=== PATIENT | male | born 1940 | race Caucasian/White ===

== ENCOUNTER → 2018-05-27 | Outpatient (CLI) | payer OTHER, MEDICAID ==
[~2018-05-27] MED LIST: IOPAMIDOL (ISOVUE-300) 100 ML BTL ONE
== END ==
LOC: FIMAGING 15:52
PROVIDERS: ATTEND Surgery
DX: R10.31 Right lower quadrant pain (principal); R93.2 Abnormal findings on diagnostic imaging of liver and biliary tract; K57.30 Diverticulosis of large intestine without perforation or abscess without bleeding; K40.00 Bilateral inguinal hernia, with obstruction, without gangrene, not specified as recurrent; Z98.890 Other specified postprocedural states
CPT/HCPCS: 74177; Q9967; 82565-PO

== ENCOUNTER 2018-08-14 08:54 | Observation (INO) | payer OTHER, MEDICAID ==
--- NOTE | 2018-08-14 09:15 | PDHPUP ---
History & Physical Update H&P update statement: This history and physical update is based on an assessment of the patient which was completed after admission or registration (within 24 hours), but prior to the surgery/procedure. H&P update: H&P reviewed & patient examined, no change in patient's condition since H&P completed
[2018-08-14] MEDS ORDERED: VANCOMYCIN PHARMACY TO DOSE MISC ONE (09:22)
[2018-08-14] MEDS ORDERED: LR 1,000 ML IV ONE (09:27)
[2018-08-14] MEDS ORDERED: LIDOCAINE 1% 2 ML INJ ID PRN (09:27)
[2018-08-14] MEDS ORDERED: ceFAZolin 2 GM/DEXTROSE 100 ML IV ONE (10:00)
--- NOTE | 2018-08-14 11:38 | PDANEPAE ---
ANE Past Medical History - Cardiovascular History Hx Hypertension: No Hx Arrhythmias: No Hx Chest Pain: No Hx Coronary Artery / Peripheral Vascular Disease: No Hx CHF / Valvular Disease: No Hx Palpitations: No - Pulmonary History Hx COPD: No Hx Asthma/Reactive Airway Disease: No Hx Recent Upper Respiratory Infection: No Hx Oxygen in Use at Home: No Hx Sleep Apnea: No - Neurologic History Hx Cerebrovascular Accident: No Hx Seizures: No Hx Dementia: No - Endocrine History Hx Diabetes: No - Renal History Hx Renal Disorders: No - Liver History Hx Hepatic Disorders: No - Neurological & Psychiatric Hx Hx Neurological and Psychiatric Disorders: No - Cancer History Hx Cancer: Yes 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 cholecystectomy. splenectomy ANE Review of Systems Review of Systems: - Exercise capacity METS (RN): 3 METS ANE Patient History - Allergies Allergies/Adverse Reactions: codeine Allergy (Verified 10/20/13 12:27) Penicillins Allergy (Verified 06/30/12 16:12) - Home Medications Home Medications: traZODone [traZODone 150MG (*)] 75 mg PO HS 11/21/14 [Last Taken 08/13/18 22:00] Ibuprofen PRN 08/13/18 [Last Taken 08/13/18] Ketoconazole 2% DAILY 08/13/18 [Last Taken 08/13/18] Meloxicam DAILY 08/13/18 [Last Taken 08/13/18] Triamcinolone 0.1% Cream BID 08/13/18 [Last Taken 08/13/18] - NPO status NPO Since - Liquids (Date): 08/13/18 NPO Since - Liquids (Time): 23:00 NPO Since - Solids (Date): 08/13/18 NPO Since - Solids (Time): 23:00 - Smoking Hx Smoking Status: Former smoker - Family Anes Hx Family Hx Anesthesia Complications: none known ANE Labs/Vital Signs - Vital Signs Blood Pressure: 139/80 Heart Rate: 75 Respiratory Rate: 17 O2 Sat (%): 90 Height: 172.72 cm Weight: 79.379 kg ANE Physical Exam - Airway Mallampati Score: Class 2 Mouth exam: dentures - ASA Status ASA Status: II ANE Anesthesia Plan Anesthesia Plan: general endotracheal anesthesia
[2018-08-14] MEDS ORDERED: BUPIVACAINE 0.5% 30 ML SDV ONE (11:50)
[2018-08-14] MEDS ORDERED: MIDAZOLAM 2 MG/2 ML VIAL ONE (11:52)
[2018-08-14] MEDS ORDERED: PROPOFOL 200 MG/20 ML VIAL ONE (11:53)
[2018-08-14] MEDS ORDERED: fentaNYL 100 MCG/2 ML INJ ONE ×2 (11:53→14:24)
[2018-08-14] MEDS ORDERED: METOCLOPRAMIDE 10 MG/2 ML VIAL ONE (11:55)
[2018-08-14] MEDS ORDERED: ROCURONIUM 50 MG/5 ML VIAL ONE (11:55)
[2018-08-14] MEDS ORDERED: ONDANSETRON 4 MG/2 ML VIAL ONE (11:55)
[2018-08-14] MEDS ORDERED: SUGAMMADEX SODIUM 200 MG/2 ML VIAL IVP ONE (12:55)
--- NOTE | 2018-08-14 13:14 | POSTOPPROG ---
Post Op Note Date of Operation: 08/14/18 Surgeon: Bryson Johnson Thermodynamic Physicist: Eber Anesthesiologist: Shaggy Anesthesia: GET(General Endotracheal) Pre-op Diagnosis: BIH Post-op Diagnosis: same Indication: same Procedure: Lap BIH repairs with mesh Findings: R direct inguinal, L indirect inguinal hernias Inf/Abcess present in the surg proc area at time of surgery?: No Depth: Deep Incisional (Fascial) EBL: Minimal
[2018-08-14] MEDS ORDERED: LR 500 ML IV PRN (13:16)
[2018-08-14] MEDS ORDERED: PROMETHAZINE HCL 25 MG/ML INJ IVP PRN (13:16)
[2018-08-14] MEDS ORDERED: NALOXONE HCL 0.4 MG/ML INJ IVP PRN (13:16)
[2018-08-14] MEDS ORDERED: fentaNYL 100 MCG/2 ML INJ IVP PRN (13:16)
--- NOTE | 2018-08-14 13:17 | POSTANESTH ---
Post Anesthetic Evaluation Cardiovascular Status: Normal, Stable Respiratory Status: Normal, Stable Level of Consciousness/Mental Status: Can Participate in Eval Pain Control: Adequate, Prn Tx Ordered Nausea/Vomiting Control: Adequate, Prn Tx Ordered Complications Possibly Related to Anesthesia: None Noted
[2018-08-14] MEDS ORDERED: HYDROmorphONE/DILAUDID 1 MG/ML INJ IVP PRN (13:59)
[2018-08-14] MEDS ORDERED: ACETAMINOPHEN 325 MG TAB PO PRN (13:59)
[2018-08-14] MEDS ORDERED: ONDANSETRON DISINTEGRATING 4 MG TAB PO PRN (13:59)
[2018-08-14] MEDS: oxyCODONE IR 5 MG TAB PO PRN ×2 (15:51→20:04)
--- NOTE | 2018-08-14 17:48 | SOAPPROG ---
SOAP Progress Note Assessment/Plan: Assessment: DOING WELL POSTOP/WOUND OKAY/AFEBRILE/STABLE VITAL SIGNS/EATING OKAY Plan: HOME IN 1-2 DAYS 08/14/18 17:48 Objective: Vital Signs Temp Pulse Resp BP Pulse Ox 36 C 78 18 151/86 H 95 08/14/18 16:00 08/14/18 16:00 08/14/18 16:00 08/14/18 16:00 08/14/18 16:00 08/13/18 08/14/18 08/15/18 05:59 05:59 05:59 Intake Total 800 Output Total 20 Balance 780 ICD10 Worksheet Patient Problems: Problems Problem Status Onset Osteoarthritis of shoulder Acute
[2018-08-14] MEDS ORDERED: traZODone 100 MG TAB PO SCH (21:00)
[2018-08-14] MEDS ORDERED: CALCIUM CARBONATE 500 MG CHEWABLE TAB PO PRN (21:42)
[2018-08-15] MEDS: oxyCODONE IR 5 MG TAB PO PRN ×3 (00:06→08:35)
--- NOTE | 2018-08-15 04:51 | GOP ---
DATE OF OPERATION: 08/14/2018 SURGEON: Bryson Johnson MD OFFAL SEPARATOR: Ana Velázquez NP. ANESTHESIOLOGIST: Dr. Coon. PREOPERATIVE DIAGNOSIS: Bilateral inguinal hernias. POSTOPERATIVE DIAGNOSIS: Bilateral inguinal hernias. PROCEDURE PERFORMED: Laparoscopic bilateral inguinal hernia repairs with mesh. FINDINGS: The patient was found to have bilateral direct defects, right was much greater than left. There were no indirect sacs. ESTIMATED BLOOD LOSS: Negligible. DESCRIPTION OF PROCEDURE: The patient was taken to the operating room where he received satisfactory general endotracheal anesthesia by Dr. Coon. He was placed in supine position, prepped and draped in the usual sterile fashion. An infraumbilical incision was made. Dissection was carried to the r ectus sheath which was incised as a subfascial tunnel was developed in the preperitoneal space. That was dissected free with a balloon dissector which was replaced with a CO2 insufflation trocar. Two other trocars were placed in midline under direct vision. Hesham ligament was exposed bilaterally. The cords were mobilized bilaterally. Peritoneum was disse cted off the cord structures. There were no significant indirect sacs. Bilateral direct defects wer e then reduced. On the right, a split mesh was placed around the cord structures and the epigastric vessels which I dissected off the anterior abdominal wall. This was anchored in place with AbsorbaTa ck, securing it to Hesham ligament, lacunar ligament, anterior abdominal wall, and the lateral abdomi nal wall outside the internal ring. On the left side, an onlay patch of Covidien mesh was placed and tacked down in a similar manner. Hemostasis was assured, trocars were removed under direct vision, and pneumopreperitoneum was released. Trocar sites were closed with 0 Vicryl for the fascia, 4-0 Mon ocryl subcuticular stitch for the skin. All layers infiltrated with 0.5% Marcaine. COMPLICATIONS: None. /[id number]/MODL
[2018-08-15 09:01] VITALS: BP 140/81
--- NOTE | 2018-08-15 11:53 | ASMTCMCOM ---
CM Note CM Note Notes: Patient admitted for a scheduled surgery, no needs identified. CM available for any changes, cab voucher given. DC Plan: Independent Date Signed: 08/15/2018 11:52 AM Electronically Signed By:Maribel Cerrato RN
--- NOTE | 2018-08-15 11:55 | ASMTLACE ---
LACE Length of stay for Answers: 1 day current admission Acuity / Level of Answers: No Care: Did the patient have an inpatient admission? Comorbidities - select Answers: Other Notes: Malignant melanoma all that apply Score: 2 Date Signed: 08/15/2018 11:54 AM Electronically Signed By:Maribel Cerrato RN
--- NOTE | 2018-08-17 14:09 | PDDCSUM ---
Discharge Summary Discharge Summary: DISCHARGE SUMMARY Date of Admission August 14 Date of Discharge August 15 DISCHARGE DIAGNOSES -bilateral inguinal hernias HOSPITAL COURSE The patient was taken to the operating room on the for uneventful laparoscopic bilateral inguinal hernia repair. He had an uneventful hospital course and was discharged home in stable condition tolerating regular diet on the did the DISCHARGE MEDICATIONS Oxycodone DISPOSITION Home FOLLOW UP Follow up with Dr. Johnson in the office in 10-14 days for a general post- operative visit
== END 2018-08-15 12:27 | disposition home or self-care (01) ==
LOC: F3E 08:54 → EEVIPCON 12:00 → F3E 14:34
PROVIDERS: ADMIT Surgery; ATTEND Surgery
PROC: 0YUA4JZ Supplement Bilateral Inguinal Region with Synthetic Substitute, Percutaneous Endoscopic Approach (ICD-10-PCS; principal; 2018-08-14 12:00)
DX: K40.20 Bilateral inguinal hernia, without obstruction or gangrene, not specified as recurrent (principal); M54.12 Radiculopathy, cervical region; Z85.820 Personal history of malignant melanoma of skin; Z96.612 Presence of left artificial shoulder joint
CPT/HCPCS: 49650; C1727; C1781; G0378; J0690; J2250; J2405; J2704; J2765; J3010

== ENCOUNTER → 2018-10-09 | Outpatient (CLI) | payer OTHER, MEDICAID | LOC: FIMAGING 12:51 | PROVIDERS: ATTEND Family Medicine | DX: I86.1 Scrotal varices (principal); Z87.19 Personal history of other diseases of the digestive system; Z98.890 Other specified postprocedural states ==

== ENCOUNTER → 2019-01-07 | Outpatient (CLI) | payer OTHER, MEDICAID | LOC: FIMAGING 15:32 | PROVIDERS: ATTEND Family Medicine | DX: K40.90 Unilateral inguinal hernia, without obstruction or gangrene, not specified as recurrent (principal); K57.30 Diverticulosis of large intestine without perforation or abscess without bleeding; Z98.890 Other specified postprocedural states; Z87.19 Personal history of other diseases of the digestive system; Z90.49 Acquired absence of other specified parts of digestive tract | CPT/HCPCS: 74177; Q9967 ==